=== PATIENT | female | born 1965 | race Caucasian/White ===

== ENCOUNTER 2017-06-05 16:29 | Observation (INO) ==
[2017-06-05 17:45] LABS: Hematocrit 32.7 % (35.3-44.9); Hemoglobin 10.1 g/dL (11.5-15.4); Mean Corpuscular HGB Conc 30.9 g/dL (31.6-35.5); Mean Corpuscular Hemoglobin 28.6 pg (28.0-33.3); Mean Corpuscular Volume 92.6 fL (83.0-100.0); Mean Platelet Volume 9.1 fL (9.4-12.4); Platelet Count 325 K/mcL (140-400); Red Blood Count 3.53 M/mcL (3.82-4.97); Red Cell Distribution Width 14.3 % (11.5-14.5)
[2017-06-05] MEDS ORDERED: Ipratropium/Albuterol Neb 3 ML IH ONE (17:48)
--- NOTE | 2017-06-05 17:50 | Emergency Department Note ---
Disposition Clinical Impression: Healthcare-associated pneumonia, ESRD (end stage renal disease) Disposition: Admitted As Inpatient Condition: Fair Referrals: Birdie Jacob MD [Primary Care Provider] - Forms: ED Satisfaction Letter Time of Disposition: 18:53 General Adult HPI - General Chief complaint: ED Shortness of Breath/Dyspnea Stated complaint: Possible pneumonia Time Seen by Provider: 06/05/17 17:20 Source: patient, family Mode of arrival: ambulatory Limitations: no limitations Nursing Notes Reviewed: Yes Vital Signs Reviewed: Yes - History of Present Illness HPI Narrative: 52-year-old female history of ESRD, Saturday presents for evaluation of possible pneumonia. The patient states that she has not been feeling well this morning. Patient notes an operative cough. Low-grade temperature. Patient states it she went to her dialysis appointment today completed the treatment. However nursing staff there noted the patient had decreased breath sounds on the left. Patient denies any chest pain. Denies any abdominal pain. No nausea or vomiting. No signs of fluid overload or swelling of the lower extremities. Pain Scale: 0 - Related Data Home Medications Medication Instructions Recorded Confirmed Aspirin [Lo-Dose Aspirin EC] 81 mg PO DAILY 03/15/17 03/15/17 Calcitriol 0.5 mcg PO DAILY 03/15/17 03/15/17 Diltiazem CD (24hr) [Cardizem CD] 180 mg PO DAILY 03/15/17 03/15/17 Furosemide [Lasix] 40 mg PO BID 03/15/17 03/15/17 Hydralazine HCl 100 mg PO TID 03/15/17 03/15/17 Insulin ASPART [NovoLOG] 0 unit SQ DAILY PRN 03/15/17 03/15/17 Insulin DETEMIR [Levemir] 30 unit SQ DAILY 03/15/17 03/15/17 Levothyroxine [Synthroid] 75 mcg PO DAILY 03/15/17 03/15/17 Metoprolol Succinate 12.5 mg PO BID 03/15/17 03/15/17 Mycophenolate Sodium [Myfortic] 360 mg PO BID 03/15/17 03/15/17 NIFEdipine [Nifedipine ER] 30 mg PO DAILY 03/15/17 03/15/17 Rosuvastatin Calcium 10 mg PO DAILY 03/15/17 03/15/17 Sodium Bicarbonate 650 mg PO TID 03/15/17 03/15/17 cloNIDine HCl [Clonidine HCl] 0.2 mg PO BID 03/15/17 03/15/17 levoFLOXacin [Levofloxacin] 250 mg PO DAILY 03/15/17 03/15/17 Allergies Allergy/AdvReac Type Severity Reaction Status Date / Time diphenhydramine Allergy Hives Verified 06/05/17 16:32 [From Benadryl] vancomycin Allergy Hives Verified 06/05/17 16:32 All systems ED: reviewed and negative except as stated. Constitutional: Reports: fever Cardiovascular: Denies: chest pain Respiratory: Reports: cough Gastrointestinal: Denies: abdominal pain, nausea, vomiting, diarrhea Past Medical History - Past Medical History Source: patient Medical history: Reports: diabetes, hypertension, renal disease Surgical history: Reports: Psychiatric history: Reports: no psych history SINGLE NEEDLE OPERATOR history: Reports: no SINGLE NEEDLE OPERATOR history - Social History Smoking Status: Never smoker Smokeless Tobacco Status: No Alcohol use: Reports: none Drug use: Reports: none Physical Exam - General Limitations: no limitations General appearance: alert, in no apparent distress - Head Head exam: atraumatic, normocephalic, normal inspection - Eye Eye exam: Present: normal appearance, PERRL, EOMI - ENT ENT exam: normal exam, mucous membranes moist - Neck Neck exam: Present: normal inspection - Chest Chest inspection: Present: normal inspection, symmetric chest wall rise - Respiratory Respiratory exam: Present: other (Increased left-sided breath sounds). Absent: respiratory distress, accessory muscle use - Cardiovascular Cardiovascular exam: Present: regular rate, normal rhythm. Absent: systolic murmur - Abdominal Exam Abdominal exam: Present: soft, Non-Tender - Extremities Exam Extremities exam: Present: normal inspection, other (Functioning left upper extremity AV fistula). Absent: pedal edema - Expanded Lower Extremity Exam Neurovascular/Tendon exam: Present: normal capillary refill - Back Exam Back exam: Present: normal inspection - Neurological Exam Neurological exam: Present: alert - Skin Skin exam: Present: warm, dry, intact, normal color Course Course Narrative: Patient seen and examined. Patient will get basic lab work chest x-ray. Patient was also given a DuoNeb. Clinically the patient has some symptoms suggestive of pneumonia. - Consultations Consultation #1: Spoke with Dr. Nelson who made aware the patient will be admitted. Time: 18:51 Vital Signs Temperature 99.4 F 06/05/17 16:32 Pulse Rate 98 06/05/17 16:32 Respiratory Rate 20 06/05/17 16:32 Blood Pressure 145/72 06/05/17 16:32 O2 Sat by Pulse Oximetry 96 06/05/17 16:32 Temperature 99.4 F 06/05/17 16:32 Pulse Rate 88 06/05/17 18:08 Respiratory Rate 18 06/05/17 18:34 Blood Pressure 112/65 06/05/17 18:08 O2 Sat by Pulse Oximetry 93 06/05/17 18:34 Oxygen Delivery Oxygen Delivery Room Air Medical Decision Making - MDM Narrative Medical decision making narrative: Patient presents with signs symptoms concerning for pneumonia. Patient has had a nonproductive cough as well as chest x-ray evidence of possible superimposed pneumonia. Patient also noted low-grade fevers and is a dialysis patient. Given the patient's signs and symptoms the patient was started on healthcare associated pneumonia. Patient had blood cultures obtained. Patient does have a reaction with vancomycin was started on nasal. Patient aware that the patient 's going to be admitted to their machine edge bander. Patient's breathing did improve during the ED course with a DuoNeb. - Lab Data Lab results reviewed: Yes I reviewed the patient's lab results. Result diagrams: 06/05/17 17:33 06/05/17 17:33 Lab Results 06/05/17 06/05/17 06/05/17 Range/Units 17:33 17:33 17:33 WBC 10.1 (4.3-11.1) K/mcL RBC 3.53 L (3.82-4.97) M/mcL Hgb 10.1 L (11.5-15.4) g/dL Hct 32.7 L (35.3-44.9) % MCV 92.6 (83.0-100.0) fL MCH 28.6 (28.0-33.3) pg MCHC 30.9 L (31.6-35.5) g/dL RDW 14.3 (11.5-14.5) % Plt Count 325 (140-400) K/mcL MPV 9.1 L (9.4-12.4) fL Sodium 140 (136-145) mEq/L Potassium 3.4 L (3.5-5.1) mEq/L Chloride 100 (98-107) mEq/L Carbon Dioxide 31 H (23-29) mEq/L BUN 14 (6-20) mg/dL Creatinine 3.66 H (0.60-1.20) mg/dL Est GFR ( Amer) 16 L (> 60) Est GFR (Non-Af Amer) 13 L (> 60) BUN/Creatinine Ratio 4 L (6-26) Glucose 183 H (70-105) mg/dL Calculated Osmolality 295 (280-300) Lactic Acid 1.2 (0.5-2.2) mmol/L Calcium 9.2 (8.6-10.3) mg/dL Magnesium 2.1 (1.6-2.6) mg/dL Total Bilirubin 0.2 L (0.3-1.0) mg/dL Direct Bilirubin 0.0 (0.0-0.2) mg/dL Indirect Bilirubin 0.2 (0.0-1.2) mg/dL AST 10 L (13-39) Units/L ALT 6 L (7-52) Units/L Alkaline Phosphatase 58 (34-104) Units/L Troponin I (< 0.04) ng/mL B-Natriuretic Peptide (Less than 100) pg/mL Serum Total Protein 6.3 L (6.4-8.9) g/dL Albumin 3.4 L (3.5-5.7) g/dL Globulin 2.9 (2.4-3.5) g/dL Albumin/Globulin Ratio 1.2 (1.1-2.2) 06/05/17 06/05/17 Range/Units 17:33 17:33 WBC (4.3-11.1) K/mcL RBC (3.82-4.97) M/mcL Hgb (11.5-15.4) g/dL Hct (35.3-44.9) % MCV (83.0-100.0) fL MCH (28.0-33.3) pg MCHC (31.6-35.5) g/dL RDW (11.5-14.5) % Plt Count (140-400) K/mcL MPV (9.4-12.4) fL Sodium (136-145) mEq/L Potassium (3.5-5.1) mEq/L Chloride (98-107) mEq/L Carbon Dioxide (23-29) mEq/L BUN (6-20) mg/dL Creatinine (0.60-1.20) mg/dL Est GFR ( Amer) (> 60) Est GFR (Non-Af Amer) (> 60) BUN/Creatinine Ratio (6-26) Glucose (70-105) mg/dL Calculated Osmolality (280-300) Lactic Acid (0.5-2.2) mmol/L Calcium (8.6-10.3) mg/dL Magnesium (1.6-2.6) mg/dL Total Bilirubin (0.3-1.0) mg/dL Direct Bilirubin (0.0-0.2) mg/dL Indirect Bilirubin (0.0-1.2) mg/dL AST (13-39) Units/L ALT (7-52) Units/L Alkaline Phosphatase (34-104) Units/L Troponin I < 0.03 (< 0.04) ng/mL B-Natriuretic Peptide 389 H (Less than 100) pg/mL Serum Total Protein (6.4-8.9) g/dL Albumin (3.5-5.7) g/dL Globulin (2.4-3.5) g/dL Albumin/Globulin Ratio (1.1-2.2) - Radiology Data Radiology results reviewed: Yes I reviewed the patient's radiology results. Chest X-Ray 06/05/17 16:40 IMPRESSION: Evidence of bilateral pleural effusions with adjacent airspace disease, overall greater on the left. Pulmonary edema is considered most likely. Correlate with any clinical evidence of superimposed pneumonia. D/ / Sachin Ramon MD / Sachin Ramon MD Interpreting Provider: Sachin Ramon MD - EKG Data EKG #1 EKG attestation: Yes I reviewed and interpreted this EKG. EKG shows normal: sinus rhythm Rate: normal Rhythm: NSR [place]/QRS: normal Voltage: c/w LVH Interpretation: no acute changes, nonspecific ST-T wave changes S.B.A.R. - S.B.A.R. Situation: Demographics Background: Presenting Complaint Assessment: Vital Signs, Course and respsone to treatment, Patient/Family Expectation Recommendation: Barrier(s) to disposition, Recommendation based on pending studies, treatments, or consults Brian Report Given to: Connor Torres Repor Time: 18:38 Attestation Statement - Attestation Attestation: I examined this patient and my medical decision-making was reviewed with the Resident Physician. I agree with the documented findings, disposition and treatment plan as described except to the extent set forth below. Patient eating not feeling well. Cough. Short of breath. Low-grade temps. Went to dialysis this morning and was told that her lung sounds were abnormal. On examination she is diminished in the left base. Plan. Patient with temp 99 4. Cough. Aches. Flu swab. Septic workup. Likely admission.
[2017-06-05 18:03] LABS: Albumin 3.4 g/dL (3.5-5.7); Albumin/Globulin Ratio 1.2 (1.1-2.2); Bilirubin,Indirect 0.2 mg/dL (0.0-1.2); Bilirubin,Total 0.2 mg/dL (0.3-1.0); Calcium 9.2 mg/dL (8.6-10.3); Globulin 2.9 g/dL (2.4-3.5); Magnesium 2.1 mg/dL (1.6-2.6); Potassium 3.4 mEq/L (3.5-5.1); Total Protein 6.3 g/dL (6.4-8.9)
[2017-06-05] MEDS ORDERED: Piperacillin/Tazobactam 3.375 GM in Water for inj. (sterile) 20 ML IVP ONE (18:03)
--- NOTE | 2017-06-05 19:53 | Internal Med History&Physical ---
<Mely Choudhary - Last Filed: 06/05/17 23:20> Date of Encounter: 06/05/17 Time of Encounter: 08:00 Assessment and Plan (1) Healthcare-associated pneumonia Current visit: Yes Status: Suspected Possible HCAP--hospitalized within last 90 days and regular hemodialysis pt. Currently afebrile. CXR shows blunted costophrenic angles bilaterally and increased central opacity with atelectasis in left mid lung; bilateral pleural effusions. - Empiric linezolid and zosyn for now - Duonebs q6h CONCEPCIÓN and q4h PRN - Supplemental O2, 2L nasal cannula PRN - Respiratory infection panel pending (2) ESRD (end stage renal disease) on dialysis Current visit: Yes Status: Chronic Dr. Medina patient, Dr. Medina aware of pt's admission. Hemodialysis MWF, completed Saturday dialysis appointment. (3) Renal transplant, status post Current visit: Yes Status: Acute s/p renal transplant 2012. Hx of 2 previous renal transplants, one transplant failed after 11.5 years and other failed after 5 years. At home, takes prednisone 5mg daily for immunosuppression. -Hydrocortisone 50mg IV q8h for steroid boost (4) Immunosuppressed status Current visit: Yes Status: Acute Chronic immunosuppression d/t hx of kidney transplant; takes 5mg prednisone daily at home. (5) Diabetes mellitus Current visit: Yes Status: Chronic Blood glucose on admission 183. Glucose control @ home with levemir 30 units qAM and novolog. - monitor glucose with accu-cheks and AM labs - low dose SSI - basal insulin levemir 20 units qAM Qualifiers: Diabetes mellitus type: type 2 Diabetes mellitus complication status: with kidney complications Diabetes mellitus complication detail: with chronic kidney disease Diabetes mellitus senior living insulin use: with senior living use Chronic kidney disease stage: on chronic dialysis Qualified Code(s): E11.22 - Type 2 diabetes mellitus with diabetic chronic kidney disease; N18.6 - End stage renal disease; Z99.2 - Dependence on renal dialysis; Z99.2 - Dependence on renal dialysis; Z99.2 - Dependence on renal dialysis; N18.6 - End stage renal disease; N18.6 - End stage renal disease; N18.6 - End stage renal disease ; Z79.4 - skilled nursing (current) use of insulin; Z79.4 - terminologist (current) use of insulin; Z79.4 - terminologist (current) use of insulin; Z79.4 - terminologist ( current) use of insulin; Z99.2 - Dependence on renal dialysis (6) Hypertension Current visit: No Status: Chronic Continue home meds Qualifiers: Hypertension type: unspecified Qualified Code(s): I10 - Essential (primary ) hypertension (7) Hyperlipidemia Current visit: Yes Status: Acute Continue rosuvastatin Qualifiers: Hyperlipidemia type: unspecified Qualified Code(s): E78.5 - Hyperlipidemia , unspecified (8) DVT prophylaxis Current visit: No Status: Acute Heparin 5,000 units SubQ q12h Internal Medicine - H&P: HPI Chief complaint: shortness of breath Admitted From: Home History of present illness: Ms. Oliva is a 52 year old female with PMH HTN, HLD, DM, ESRD (on HD), s/p kidney transplant 2012, and hypothyroidism who presents for shortness of breath and possible PNA. Pt reports low-grade temperature of 99.5 F in addition to not feeling well x 1 day. At dialysis appointment today (MW), audio visual project manager told pt left lung sounds were diminished. Dialysis appointment completed prior to arrival in ED. Past Med Surg Social Fam HX - Past Medical History Medical history: diabetes, dialysis (HD), hyperlipidemia, hypertension, renal disease (ESRD ), thyroid disease (hypothyroidism) Psychiatric history: no psych history - Past Surgical History Surgical History: , transplant (kidney 2012) - Social History Smoking Status: Never smoker Smokeless Tobacco Status: No Alcohol use: none Drug use: none Current living situation: Home - Family History Father Living Status: Still Living Hx Family Cardiac Disorders: Yes (HTN,heart disease, double bypass) Mother Living Status: Still Living Hx Family Cardiac Disorders: Yes (HTN) Hx Family Endocrine Disorder: Yes (DM type 2) Internal Medicine - H&P: Meds Aspirin [Lo-Dose Aspirin EC] 81 mg PO DAILY 03/15/17 [History] Calcitriol 0.5 mcg PO DAILY 03/15/17 [History] Furosemide [Lasix] 40 mg PO BID 03/15/17 [History] Hydralazine HCl 100 mg PO TID 03/15/17 [History] Insulin ASPART [NovoLOG] 0 unit SQ DAILY PRN 03/15/17 [History] Insulin DETEMIR [Levemir] 30 unit SQ QAM 03/15/17 [History] Levothyroxine [Synthroid] 75 mcg PO QAM 03/15/17 [History] Metoprolol Succinate 12.5 mg PO BID 03/15/17 [History] Mycophenolate Sodium [Myfortic] 360 mg PO BID 03/15/17 [History] NIFEdipine [Nifedipine ER] 30 mg PO DAILY 03/15/17 [History] Rosuvastatin Calcium 10 mg PO HS 03/15/17 [History] Sodium Bicarbonate 650 mg PO TID 03/15/17 [History] cloNIDine HCl [Clonidine HCl] 0.2 mg PO BID 03/15/17 [History] Budesonide/Formoterol 160/4.5 [Symbicort 160/4.5] 2 puff IH BIDR 06/05/17 [ History] Loratadine [Claritin] 10 mg PO DAILY 06/05/17 [History] Sevelamer [Renvela] 800 mg PO TIDWM 06/05/17 [History] predniSONE [PredniSONE] 5 mg PO DAILY 06/05/17 [History] 3 Allergy/AdvReac Type Severity Reaction Status Date / Time diphenhydramine Allergy Hives Verified 06/05/17 16:32 [From Benadryl] vancomycin Allergy Hives Verified 06/05/17 16:32 All Systems PM: A 10-system review of systems was performed and is negative for pertinent findings except as documented above in the HPI. - Constitutional Constitutional: as per HPI, weakness (after dialysis), no chills - Cardiovascular Cardiovascular ROS IM: no chest pain, no dyspnea, no edema, no irregular heart rhythm, no lightheadedness, no palpitations - Respiratory Respiratory: cough (non-productive), no wheezing, no chest congestion - Gastrointestinal Gastrointestinal: no abdominal pain, no constipation, no diarrhea, no nausea, no vomiting - Constitutional Vitals: Temp Pulse Resp BP Pulse Ox 99.4 F 89 16 126/63 96 06/05/17 16:32 06/05/17 19:13 06/05/17 19:13 06/05/17 19:13 06/05/17 19:13 General appearance: Present: A&O X 3, pleasant, no acute distress, answers questions appropriately - Head Head exam: Present: atraumatic, normocephalic - Eye Eye exam: Present: EOMI, normal appearance, PERRL - ENT ENT exam: Present: mucous membranes moist - Neck Neck exam general surgery: Present: supple, trachea midline - Respiratory Respiratory exam: Present: decreased breath sounds (bilateral lower lung fung) . Absent: accessory muscle use, rales, respiratory distress, rhonchi, stridor, wheezes - Cardiovascular Cardiovascular exam: Present: RRR, +S1, +S2 Additional comments: no murmurs, no edema - GI/Abdominal GI/Abdominal exam: Present: normal bowel sounds, soft. Absent: tenderness - Extremities Exam Extremities exam: Present: warm. Absent: pedal edema Additional comments: DP pulses 2+ - Back Exam Back exam: Present: normal inspection - Neurological Exam Neurological exam: Present: alert, oriented X3, no focal deficits. Absent: speech deficit - Psychiatric Psychiatric exam: Present: normal affect, normal mood - Skin Skin exam: Present: dry, intact, warm Internal Med - H&P Results - Labs CBC & Chem 7: 06/05/17 17:33 06/05/17 17:33 Labs: Short CBC 06/05/17 Range/Units 17:33 WBC 10.1 (4.3-11.1) K/mcL Hgb 10.1 L (11.5-15.4) g/dL Hct 32.7 L (35.3-44.9) % Plt Count 325 (140-400) K/mcL BMP 06/05/17 17:33 Sodium 140 Potassium 3.4 L Chloride 100 Carbon Dioxide 31 H BUN 14 Creatinine 3.66 H Glucose 183 H Calcium 9.2 Cardiac Enzymes 06/05/17 Range/Units 17:33 Troponin I < 0.03 (< 0.04) ng/mL Liver Function 06/05/17 Range/Units 17:33 Total Bilirubin 0.2 L (0.3-1.0) mg/dL Direct Bilirubin 0.0 (0.0-0.2) mg/dL AST 10 L (13-39) Units/L ALT 6 L (7-52) Units/L Alkaline Phosphatase 58 (34-104) Units/L Albumin 3.4 L (3.5-5.7) g/dL - Impressions ITS Impressions Chest X-Ray 06/05/17 16:40 IMPRESSION: Evidence of bilateral pleural effusions with adjacent airspace disease, overall greater on the left. Pulmonary edema is considered most likely. Correlate with any clinical evidence of superimposed pneumonia. D/ / Sachin Ramon MD / Sachin Ramon MD Interpreting Provider: Sachin Ramon MD <BeBruno - Last Filed: 06/06/17 05:01> Date of Encounter: 06/06/17 Internal Medicine - H&P: HPI History of present illness: Ms. Oliva is a 52 year old female All Systems PM: A 10-system review of systems was performed and is negative for pertinent findings except as documented above in the HPI. - Constitutional Vitals: Temp Pulse Resp BP Pulse Ox 98.3 F 96 16 176/74 94 06/06/17 04:41 06/06/17 04:41 06/06/17 04:41 06/06/17 04:41 06/06/17 04:41 Internal Med - H&P Results - Labs CBC & Chem 7: 06/06/17 04:11 06/05/17 17:33 Labs: Short CBC 06/06/17 Range/Units 04:11 WBC 11.7 H (4.3-11.1) K/mcL Hgb 9.2 L (11.5-15.4) g/dL Hct 30.9 L (35.3-44.9) % Plt Count 299 (140-400) K/mcL - Attending Attestation I have seen and examined this pt independently. I have discussed with resident physician Dr Choudhary regarding the management plan. Agree with the documentation.
[2017-06-05] MEDS ORDERED: Naloxone 0.4 MG/ML INJ IVP PRN (20:45)
[2017-06-05] MEDS ORDERED: *HR* Dextrose 50 % in Water (Syg) 50 ML SYRINGE IVP PRN ×2 (20:52→21:25)
[2017-06-05] MEDS ORDERED: Dextrose Gel 15 GM/37.5 ML TUBE PO PRN ×4 (20:52→21:25)
[2017-06-05] MEDS ORDERED: D5% in Water 1,000 ML IVC PRN ×2 (20:52→21:25)
[2017-06-05] MEDS ORDERED: Insulin LISPRO 300 UNITS/3 ML VIAL SQ SCH (21:00)
[2017-06-05] MEDS ORDERED: Ipratropium/Albuterol Neb 3 ML IH PRN (21:25)
[2017-06-05] MEDS: Ipratropium/Albuterol Neb 3 ML IH SCH (23:08)
[2017-06-05] MEDS: Hydrocortisone Sodium Succ 100 MG/2 ML VIAL IVP SCH (23:52)
[2017-06-06 04:31] LABS: Hematocrit 30.9 % (35.3-44.9); Hemoglobin 9.2 g/dL (11.5-15.4); Mean Corpuscular HGB Conc 29.8 g/dL (31.6-35.5); Mean Corpuscular Hemoglobin 28.6 pg (28.0-33.3); Mean Platelet Volume 9.2 fL (9.4-12.4); Platelet Count 299 K/mcL (140-400); Red Blood Count 3.22 M/mcL (3.82-4.97); Red Cell Distribution Width 14.2 % (11.5-14.5)
[2017-06-06] MEDS: Ipratropium/Albuterol Neb 3 ML IH SCH ×2 (04:33→10:48)
[2017-06-06 05:02] LABS: Calcium 9.5 mg/dL (8.6-10.3); Magnesium 2.2 mg/dL (1.6-2.6); Potassium 3.9 mEq/L (3.5-5.1)
[2017-06-06] MEDS ORDERED: *HR* Heparin 5,000 UNIT/ML VIAL SQ SCH (06:00)
[2017-06-06 07:19] VITALS: BP 159/83
[2017-06-06] MEDS ORDERED: Insulin LISPRO 300 UNITS/3 ML VIAL SQ SCH ×3 (07:30→21:00)
[2017-06-06] MEDS: Hydrocortisone Sodium Succ 100 MG/2 ML VIAL IVP SCH (08:12)
[2017-06-06] MEDS ORDERED: Furosemide 40 MG TABLET PO SCH ×2 (08:15→09:00)
--- NOTE | 2017-06-06 08:31 | Discharge Summary ---
Date of Encounter: 06/06/17 Time of Encounter: 08:28 - Discharge Diagnosis (1) Renal transplant failure and rejection Priority: Secondary Status: Acute (2) End stage renal disease Priority: Secondary Status: Acute (3) Renal transplant, status post Priority: Secondary Status: Acute (4) Healthcare-associated pneumonia Priority: Primary Status: Suspected (5) Hypertension Priority: Secondary Status: Chronic Qualifiers: Hypertension type: unspecified Qualified Code(s): I10 - Essential (primary ) hypertension - Discharge Medications Prescriptions: Amoxicillin/Clavulanate [Augmentin] 875 mg PO BIDWM #10 tablet Home Medications: Aspirin [Lo-Dose Aspirin EC] 81 mg PO DAILY 03/15/17 [History] Calcitriol 0.5 mcg PO DAILY 03/15/17 [History] Furosemide [Lasix] 40 mg PO BID 03/15/17 [History] Hydralazine HCl 100 mg PO TID 03/15/17 [History] Insulin ASPART [NovoLOG] 0 unit SQ DAILY PRN 03/15/17 [History] Insulin DETEMIR [Levemir] 30 unit SQ QAM 03/15/17 [History] Levothyroxine [Synthroid] 75 mcg PO QAM 03/15/17 [History] Metoprolol Succinate 12.5 mg PO BID 03/15/17 [History] Mycophenolate Sodium [Myfortic] 360 mg PO BID 03/15/17 [History] NIFEdipine [Nifedipine ER] 30 mg PO DAILY 03/15/17 [History] Rosuvastatin Calcium 10 mg PO HS 03/15/17 [History] Sodium Bicarbonate 650 mg PO TID 03/15/17 [History] cloNIDine HCl [Clonidine HCl] 0.2 mg PO BID 03/15/17 [History] Budesonide/Formoterol 160/4.5 [Symbicort 160/4.5] 2 puff IH BIDR 06/05/17 [ History] Loratadine [Claritin] 10 mg PO DAILY 06/05/17 [History] Sevelamer [Renvela] 800 mg PO TIDWM 06/05/17 [History] predniSONE [PredniSONE] 5 mg PO DAILY 06/05/17 [History] Amoxicillin/Clavulanate [Augmentin] 875 mg PO BIDWM #10 tablet 06/06/17 [Rx] Allergies/Adverse Reactions: 3 Allergy/AdvReac Type Severity Reaction Status Date / Time diphenhydramine Allergy Hives Verified 06/05/17 16:32 [From Benadryl] vancomycin Allergy Hives Verified 06/05/17 16:32 Date of admission: 06/06/17 04:55 Primary care physician: Birdie Jacob MD - Patient Status Disposition: Home, Self-Care Condition: Fair Overall status at discharge: patient is progressing back to baseline - Discharge Instructions Instructions: Amoxicillin/Clavulanate Potassium (By mouth) Follow Up With: Birdie Jacob MD [Primary Care Provider] - 06/13/17 12:40 pm (Please bring your Photo ID and insurance card) - Diet and Activity Activity: as per physical therapy Diet: low salt diet (renal diet) Hospital course: Ms. Oliva is a 52 year old female with PMH HTN, HLD, DM, ESRD (on HD), s/p kidney transplant 2012, and hypothyroidism who presented for shortness of breath and possible PNA. Pt reported low-grade temperature of 99.5 F in addition to not feeling well x 1 day. At dialysis appointment, dowel pin man told pt left lung sounds were diminished. Dialysis appointment completed prior to arrival in ED. in the ED chest x-ray showed evidence of bilateral pleural effusions with adjacent airspace disease. She was admitted to the hospitalist service for suspected patch. She was on room air the following morning. She initially was on broad-spectrum IV antibiotics. She eventually was discharged on Augmentin. She was stable for discharge on 06/06/2017. - Time Spent with Patient Total time spent providing and/or coordinating discharge services: Greater than 30 minutes - Constitutional Vitals: Temp Pulse Resp BP Pulse Ox 97.9 F 95 22 159/83 97 06/06/17 07:17 06/06/17 07:17 06/06/17 07:17 06/06/17 07:17 06/06/17 07:17 General appearance: Present: A&O X 3, pleasant, no acute distress, answers questions appropriately Exam: GEN: NAD CVS: RRR. S1, S2, No m/r/g RESP: Diminished with bibasilar crackles ABD: Soft, NT, ND, +BS EXT: No edema. 2+ DP. No rashes NEURO: Nonfocal
[2017-06-06] MEDS ORDERED: Metoprolol XL (24 HR) Succ 25 MG TAB.ER.24H PO SCH (09:00)
[2017-06-06] MEDS ORDERED: Loratadine 10 MG TABLET PO SCH (09:00)
[2017-06-06] MEDS ORDERED: predniSONE 5 MG TABLET PO SCH (09:00)
[2017-06-06] MEDS ORDERED: cloNIDine HCl 0.1 MG TABLET PO SCH (09:00)
[2017-06-06] MEDS ORDERED: Mycophenolate Sodium (DR) 180 MG TABLET.DR PO SCH (09:00)
[2017-06-06] MEDS ORDERED: NIFEdipine XL (24 HR) 30 MG TAB.ER.24 PO SCH (09:00)
[2017-06-06] MEDS ORDERED: hydrALAZINE 25 MG TABLET PO SCH (09:00)
[2017-06-06] MEDS ORDERED: Aspirin Enteric Coated 81 MG Tablet PO SCH (09:00)
[2017-06-06] MEDS ORDERED: Insulin DETEMIR 100 UNIT/ML X5UNITS SQ SCH ×2 (09:00→21:00)
[2017-06-06] MEDS ORDERED: Budesonide/Formoterol 160/4.5 MDI IH SCH (10:00)
[2017-06-06 10:07] LABS: Hepatitis B Surface Antigen Nonreactive (Nonreactive)
--- NOTE | 2017-06-06 10:18 | Nephrology Consult Note ---
Date of Encounter: 06/06/17 Time of Encounter: 09:55 Assessment and Plan (1) End stage renal disease Current Visit: Yes Status: Acute HCAP. ESRD-no HD today, keeping [facility] schedule. History of Present Illness - Reason for Consult end stage renal disease - History of Present Illness Ms. Oliva is a 52 year old female with ESRD who dialyzes at [facility]. Last dialysis yesterday. Other PMH-diabetes, dialysis (HD), hyperlipidemia, hypertension, renal disease (ESRD ), thyroid disease (hypothyroidism) , transplant (kidney 2012). Ms. Oliva presented to ER following diaysis yesterday with complaint of not feeling well, TONI and low grade temp. CXR suspicious for PNA. Admitted with HCAP. This morning is up in room, states feeling much better and is being discharged home. Past Med Surg Social Fam HX - Past Medical History Medical history: diabetes, dialysis (HD), hyperlipidemia, hypertension, renal disease (ESRD ), thyroid disease (hypothyroidism) Psychiatric history: no psych history - Past Surgical History Surgical History: , transplant (kidney 2012) - Social History Smoking Status: Never smoker Smokeless Tobacco Status: No Alcohol use: none Drug use: none - Family History Father Living Status: Still Living Hx Family Cardiac Disorders: Yes (HTN,heart disease, double bypass) Mother Living Status: Still Living Hx Family Cardiac Disorders: Yes (HTN) Hx Family Endocrine Disorder: Yes (DM type 2) Medications and Allergies Aspirin [Lo-Dose Aspirin EC] 81 mg PO DAILY 03/15/17 [History] Calcitriol 0.5 mcg PO DAILY 03/15/17 [History] Furosemide [Lasix] 40 mg PO BID 03/15/17 [History] Hydralazine HCl 100 mg PO TID 03/15/17 [History] Insulin ASPART [NovoLOG] 0 unit SQ DAILY PRN 03/15/17 [History] Insulin DETEMIR [Levemir] 30 unit SQ QAM 03/15/17 [History] Levothyroxine [Synthroid] 75 mcg PO QAM 03/15/17 [History] Metoprolol Succinate 12.5 mg PO BID 03/15/17 [History] Mycophenolate Sodium [Myfortic] 360 mg PO BID 03/15/17 [History] NIFEdipine [Nifedipine ER] 30 mg PO DAILY 03/15/17 [History] Rosuvastatin Calcium 10 mg PO HS 03/15/17 [History] Sodium Bicarbonate 650 mg PO TID 03/15/17 [History] cloNIDine HCl [Clonidine HCl] 0.2 mg PO BID 03/15/17 [History] Budesonide/Formoterol 160/4.5 [Symbicort 160/4.5] 2 puff IH BIDR 06/05/17 [ History] Loratadine [Claritin] 10 mg PO DAILY 06/05/17 [History] Sevelamer [Renvela] 800 mg PO TIDWM 06/05/17 [History] predniSONE [PredniSONE] 5 mg PO DAILY 06/05/17 [History] Amoxicillin/Clavulanate [Augmentin] 875 mg PO BIDWM #10 tablet 06/06/17 [Rx] 3 Allergy/AdvReac Type Severity Reaction Status Date / Time diphenhydramine Allergy Hives Verified 06/05/17 16:32 [From Benadryl] vancomycin Allergy Hives Verified 06/05/17 16:32 Review of Systems All Systems: reviewed and no additional remarkable complaints except as stated Exam - Vital Signs Vital signs: Initial Vital Signs Temp Pulse Resp BP Pulse Ox 99.4 F 98 20 145/72 96 06/05/17 16:32 06/05/17 16:32 06/05/17 16:32 06/05/17 16:32 06/05/17 16:32 Vital Signs - Last 8 Hours Temp Pulse Resp BP Pulse Ox 06/06/17 07:17 97.9 F 95 22 159/83 97 Intake and Output 06/05/17 06/06/17 06/06/17 23:59 07:59 15:59 Output Total 0 / 0 Balance 0 / 0 Output: Urine 0 / 0 Other: Weight 82.1 kg Blood Glucose* 199 Patient Weight 06/06/17 23:59 Weight 82.1 kg - General Appearance General appearance: well-developed, well-nourished, appears started age EENT: mucous membranes moist Neck: no JVD Respiratory: clear Cardiology: no edema, regular rate, regular rhythm Gastrointestinal: normoactive bowel sounds, no tenderness Integumentary: warm and dry Neurologic: alert and oriented x3 Results - Lab Results 06/06/17 04:11 06/06/17 04:11 Most recent lab results Calcium 9.5 mg/dL (8.6-10.3) 06/06/17 04:11 Magnesium 2.2 mg/dL (1.6-2.6) 06/06/17 04:11 Consult Discharge Plan - Plan Instructions: Amoxicillin/Clavulanate Potassium (By mouth) Referrals: Birdie Jacob MD [Primary Care Provider] - 06/13/17 12:40 pm (Please bring your Photo ID and insurance card) Prescriptions: Amoxicillin/Clavulanate [Augmentin] 875 mg PO BIDWM #10 tablet
[2017-06-07 05:50] LABS: Hepatitis B Surface Antibody 9.18 mIU/mL
--- NOTE | 2017-06-09 18:04 | Electrocardiograph Report ---
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
== END 2017-06-06 11:47 | disposition home or self-care (01) ==
LOC: 2ANU 16:29 → EMEROO 16:29 → 2ANU 21:05
PROVIDERS: ADMIT Internal Medicine; ATTEND Registered Nurse

== ENCOUNTER 2020-07-15 15:07 | Observation (INO) ==
[2020-07-15] MEDS ORDERED: Ondansetron 4 MG/2 ML VIAL IVP PRN (19:30)
[2020-07-15] MEDS ORDERED: Naloxone 0.4 MG/ML INJ IVP PRN (19:30)
[2020-07-15] MEDS ORDERED: *HR* OxyCODONE Immed Rel 5 MG TABLET PO PRN (19:30)
[2020-07-15] MEDS ORDERED: *HR* Dextrose 50 % in Water (Vial) 50 ML VIAL IVP PRN (19:37)
[2020-07-15] MEDS ORDERED: Dextrose Gel 15 GM/37.5 ML TUBE PO PRN ×2 (19:37)
[2020-07-15] MEDS ORDERED: D5% in Water 1,000 ML IVC PRN (19:37)
[2020-07-15] MEDS ORDERED: Albuterol 2.5 MG/3 ML NEBULIZER IH PRN (19:40)
[2020-07-15 20:34] LABS: Basophils % 0.3 %; Hematocrit 31.6 % (35.3-44.9); Hemoglobin 9.6 g/dL (11.5-15.4); Immature Granulocytes % 0.8 % (0-4); Lymphocytes # 0.4 K/mcL (0.6-4.6); Lymphocytes % 3.4 %; Mean Corpuscular HGB Conc 30.4 g/dL (31.6-35.5); Mean Corpuscular Hemoglobin 31.9 pg (28.0-33.3); Mean Platelet Volume 9.5 fL (9.4-12.4); Monocytes # 0.1 K/mcL (0.0-1.3); Monocytes % 0.9 %; Neutrophils # 10.6 K/mcL (1.6-8.9); Platelet Count 266 K/mcL (140-400); Red Blood Count 3.01 M/mcL (3.82-4.97); Segmented Neutrophils % 94.6 %; White Blood Count 11.2 K/mcL (4.3-11.1)
[2020-07-15] MEDS ORDERED: Nitroglycerin 0.4 MG TAB.SUBL SL PRN (20:47)
[2020-07-15 20:48] LABS: INR 1.1; Prothrombin Time 12.4 Seconds (9.4-12.1)
[2020-07-15 20:50] LABS: Activated Partial Thrombo Time 27.6 Seconds (26.0-36.0)
[2020-07-15 20:57] LABS: Alanine Aminotransferase 10 Units/L (7-52); Albumin 3.8 g/dL (3.5-5.7); Albumin/Globulin Ratio 1.2 (1.1-2.2); Alkaline Phosphatase 86 Units/L (34-104); Aspartate Amino Transferase 10 Units/L (13-39); BUN/Creatinine Ratio 5 (6-26); Bilirubin,Total 0.2 mg/dL (0.3-1.0); Blood Urea Nitrogen 32 mg/dL (6-20); C-Reactive Protein 76 mg/L (Less than 10); Calcium 9.2 mg/dL (8.6-10.3); Carbon Dioxide 30 mEq/L (23-29); Chloride 97 mEq/L (98-107); Globulin 3.3 g/dL (2.4-3.5); Glucose 211 mg/dL (70-105); Magnesium 2.5 mg/dL (1.6-2.6); Osmolality,Calculated 301 (280-300); Phosphorous 4.6 mg/dL (2.7-4.5); Potassium 5.4 mEq/L (3.5-5.1); Sodium 139 mEq/L (136-145); Total Protein 7.1 g/dL (6.4-8.9); Troponin I < 0.03 ng/mL (< 0.04); eGFR For African Americans 9 (> 60); eGFR For Non-African Americans 7 (> 60)
[2020-07-15] MEDS ORDERED: Loratadine 10 MG TABLET PO PRN (20:59)
[2020-07-15] MEDS ORDERED: predniSONE 5 MG TABLET PO SCH (21:00)
[2020-07-15] MEDS ORDERED: rOPINIRole 0.25 MG TABLET PO SCH (21:00)
[2020-07-15] MEDS ORDERED: Ergocalciferol (VIT D2) 50,000 UNIT (1.25MG) CAP PO SCH (21:00)
[2020-07-16] MEDS ORDERED: *HR* Heparin 5,000 UNIT/ML VIAL SQ SCH (06:00)
[2020-07-16] MEDS ORDERED: Insulin LISPRO 300 UNITS/3 ML VIAL SUBQ SCH (07:30)
[2020-07-16] MEDS ORDERED: 0.9 % Sodium Chloride 250 ML IVC PRN (07:40)
[2020-07-16] MEDS ORDERED: 0.9 % Sodium Chloride 1,000 ML PRIME SCH (07:45)
[2020-07-16] MEDS ORDERED: Amoxicillin/Clavulanate 500 MG TABLET PO SCH (08:00)
[2020-07-16] MEDS ORDERED: Aspirin 325 MG TABLET PO SCH (09:00)
[2020-07-16 09:06] LABS: Hepatitis B Surface Antigen Nonreactive (Nonreactive)
[2020-07-16 10:39] LABS: Hepatitis B Surface Antibody 9.56 mIU/mL
[2020-07-16 14:37] VITALS: BP 148/78
== END 2020-07-16 15:33 | disposition home or self-care (01) ==
LOC: 2ANU → SUATTDRO 17:50
PROVIDERS: ADMIT General Practice; ATTEND Family Medicine

== ENCOUNTER 2021-02-24 11:37 | Inpatient (IN) ==
[2021-02-24] MEDS ORDERED: Ondansetron 4 MG/2 ML VIAL IVP ONE (11:51)
[2021-02-24 12:28] LABS: Basophils # 0.1 K/mcL (0.0-0.2); Basophils % 1.6 %; Eosinophils # 0.3 K/mcL (0.0-0.6); Eosinophils % 4.9 %; Hematocrit 28.8 % (35.3-44.9); Lymphocytes % 14.9 %; Mean Corpuscular HGB Conc 31.9 g/dL (31.6-35.5); Mean Corpuscular Hemoglobin 33.7 pg (28.0-33.3); Monocytes # 0.6 K/mcL (0.0-1.3); Monocytes % 8.4 %; Neutrophils # 4.7 K/mcL (1.6-8.9); Platelet Count 364 K/mcL (140-400); Red Blood Count 2.73 M/mcL (3.82-4.97); Segmented Neutrophils % 69.2 %; White Blood Count 6.8 K/mcL (4.3-11.1)
[2021-02-24 12:29] LABS: Hemoglobin 9.2 g/dL (11.5-15.4); Mean Corpuscular Volume 105.5 fL (83.0-100.0)
[2021-02-24 12:40] LABS: INR 1.2; Prothrombin Time 12.9 Seconds (9.4-12.1)
[2021-02-24 12:43] LABS: Activated Partial Thrombo Time 38.2 Seconds (26.0-36.0)
[2021-02-24 13:28] LABS: Albumin 3.8 g/dL (3.5-5.7); Bilirubin,Indirect 0.4 mg/dL (0.0-1.0); Bilirubin,Total 0.4 mg/dL (0.3-1.0); Calcium 8.5 mg/dL (8.6-10.3); Potassium 3.4 mEq/L (3.5-5.1); Total Protein 7.8 g/dL (6.4-8.9)
[2021-02-24 13:34] LABS: Troponin I 0.03 ng/mL (< 0.04)
[2021-02-24] MEDS ORDERED: Acetaminophen 325 MG TABLET PO PRN (13:52)
[2021-02-24] MEDS ORDERED: Ondansetron 4 MG/2 ML VIAL IVP PRN (13:52)
[2021-02-24] MEDS ORDERED: Mag Hydrox/Al Hydrox/Simeth 30 ML UDC PO PRN (13:52)
[2021-02-24] MEDS ORDERED: Naloxone 0.4 MG/ML INJ IVP PRN (13:52)
[2021-02-24] MEDS ORDERED: Milk and Molasses Enema 200 ML RC ONE (14:33)
[2021-02-24] MEDS ORDERED: 0.9 % Sodium Chloride 250 ML IVC PRN (14:34)
[2021-02-24] MEDS ORDERED: 0.9 % Sodium Chloride 1,000 ML PRIME SCH (14:45)
[2021-02-24 17:36] LABS: Hepatitis B Surface Antigen Nonreactive (Nonreactive)
[2021-02-24 18:34] LABS: Hepatitis B Surface Antibody 11.01 mIU/mL
[2021-02-24] MEDS: *HR* Heparin 5,000 UNIT/ML VIAL SQ SCH (18:57)
[2021-02-24] MEDS: rOPINIRole 0.25 MG TABLET PO SCH (20:18)
[2021-02-25] MEDS: *HR* Heparin 5,000 UNIT/ML VIAL SQ SCH ×3 (00:04→16:40)
[2021-02-25 05:51] LABS: Hematocrit 27.2 % (35.3-44.9); Hemoglobin 8.2 g/dL (11.5-15.4); Mean Corpuscular HGB Conc 30.1 g/dL (31.6-35.5); Mean Corpuscular Hemoglobin 33.1 pg (28.0-33.3); Mean Corpuscular Volume 109.7 fL (83.0-100.0); Mean Platelet Volume 9.2 fL (9.4-12.4); Platelet Count 300 K/mcL (140-400); Red Blood Count 2.48 M/mcL (3.82-4.97); Red Cell Distribution Width 15.2 % (11.5-14.5); White Blood Count 5.9 K/mcL (4.3-11.1)
[2021-02-25 06:07] LABS: Calcium 7.8 mg/dL (8.6-10.3); Magnesium 2.4 mg/dL (1.6-2.6); Potassium 4.4 mEq/L (3.5-5.1)
[2021-02-25] MEDS: predniSONE 5 MG TABLET PO SCH ×2 (08:08→21:57)
[2021-02-25] MEDS: polyethylene glycoL 3350 17 GM POWD.PACK PO SCH (08:08)
[2021-02-25] MEDS: Aspirin 325 MG TABLET PO SCH (08:08)
[2021-02-25] MEDS: Zinc Sulfate 220 MG CAPSULE PO SCH (08:09)
[2021-02-25] MEDS: Sennosides/Docusate Sodium TABLET PO SCH ×2 (08:09→21:57)
[2021-02-25] MEDS ORDERED: 0.9 % Sodium Chloride 250 ML IVC PRN (08:23)
[2021-02-25] MEDS: rOPINIRole 0.25 MG TABLET PO SCH (21:57)
[2021-02-26] MEDS: *HR* Heparin 5,000 UNIT/ML VIAL SQ SCH ×3 (01:33→17:03)
[2021-02-26 05:52] LABS: Basophils # 0.1 K/mcL (0.0-0.2); Eosinophils # 0.3 K/mcL (0.0-0.6); Eosinophils % 4.1 %; Hematocrit 28.3 % (35.3-44.9); Hemoglobin 8.6 g/dL (11.5-15.4); Immature Granulocytes % 3.1 % (0-4); Lymphocytes # 1.5 K/mcL (0.6-4.6); Lymphocytes % 21.5 %; Mean Corpuscular HGB Conc 30.4 g/dL (31.6-35.5); Mean Corpuscular Hemoglobin 33.1 pg (28.0-33.3); Mean Corpuscular Volume 108.8 fL (83.0-100.0); Mean Platelet Volume 9.4 fL (9.4-12.4); Monocytes # 1.1 K/mcL (0.0-1.3); Monocytes % 15.4 %; Neutrophils # 3.8 K/mcL (1.6-8.9); Platelet Count 329 K/mcL (140-400); Red Cell Distribution Width 14.7 % (11.5-14.5); Segmented Neutrophils % 53.9 %
[2021-02-26 06:13] LABS: Alanine Aminotransferase 6 Units/L (7-52); Albumin 3.6 g/dL (3.5-5.7); Alkaline Phosphatase 141 Units/L (34-104); Aspartate Amino Transferase 13 Units/L (13-39); Bilirubin,Indirect 0.3 mg/dL (0.0-1.0); Bilirubin,Total 0.3 mg/dL (0.3-1.0); Globulin 3.7 g/dL (2.4-3.5); Iron 100 mcg/dL (50-170); Total Protein 7.3 g/dL (6.4-8.9)
[2021-02-26 06:14] LABS: Calcium 8.3 mg/dL (8.6-10.3); Magnesium 2.4 mg/dL (1.6-2.6); Phosphorous 4.6 mg/dL (2.7-4.5); Potassium 4.9 mEq/L (3.5-5.1)
[2021-02-26 06:18] LABS: Thyroid Stimulating Hormone 7.165 mcIU/mL (0.340-5.600)
[2021-02-26 06:23] LABS: Ferritin > 1500 ng/mL (10-120)
[2021-02-26 06:27] LABS: % Iron Saturation 45 % (15-50); Transferrin 160 mg/dL (203-362)
[2021-02-26] MEDS: Sennosides/Docusate Sodium TABLET PO SCH ×2 (09:26→20:35)
[2021-02-26] MEDS: Aspirin 325 MG TABLET PO SCH (09:26)
[2021-02-26] MEDS: predniSONE 5 MG TABLET PO SCH ×2 (09:26→20:33)
[2021-02-26] MEDS: polyethylene glycoL 3350 17 GM POWD.PACK PO SCH ×2 (09:26→20:35)
[2021-02-26] MEDS: Zinc Sulfate 220 MG CAPSULE PO SCH (09:26)
[2021-02-26] MEDS ORDERED: Lactulose Oral Soln 20 GM/30 ML UDC PO ONE (09:49)
[2021-02-26 11:01] LABS: Estimated Average Glucose 108 mg/dl; Hemoglobin A1C 5.4 %
[2021-02-26] MEDS ORDERED: Cyanocobalamin (B-12) 1,000 MCG/ML VIAL SQ ONE (14:50)
[2021-02-26] MEDS: rOPINIRole 0.25 MG TABLET PO SCH (20:35)
[2021-02-26] MEDS: Melatonin 3 MG TABLET PO PRN (20:35)
[2021-02-27] MEDS: *HR* Heparin 5,000 UNIT/ML VIAL SQ SCH ×3 (00:24→15:42)
[2021-02-27 01:51] LABS: Basophils # 0.1 K/mcL (0.0-0.2); Basophils % 1.8 %; Eosinophils # 0.3 K/mcL (0.0-0.6); Hematocrit 25.5 % (35.3-44.9); Hemoglobin 8.2 g/dL (11.5-15.4); Immature Granulocytes % 2.8 % (0-4); Lymphocytes # 1.5 K/mcL (0.6-4.6); Lymphocytes % 21.3 %; Mean Corpuscular HGB Conc 32.2 g/dL (31.6-35.5); Mean Corpuscular Hemoglobin 34.2 pg (28.0-33.3); Mean Corpuscular Volume 106.3 fL (83.0-100.0); Mean Platelet Volume 9.2 fL (9.4-12.4); Monocytes # 0.9 K/mcL (0.0-1.3); Monocytes % 13.1 %; Neutrophils # 3.8 K/mcL (1.6-8.9); Platelet Count 345 K/mcL (140-400); Red Cell Distribution Width 14.6 % (11.5-14.5); White Blood Count 6.9 K/mcL (4.3-11.1)
[2021-02-27 01:58] LABS: Calcium 8.4 mg/dL (8.6-10.3); Magnesium 2.6 mg/dL (1.6-2.6); Potassium 4.8 mEq/L (3.5-5.1)
[2021-02-27] MEDS: polyethylene glycoL 3350 17 GM POWD.PACK PO SCH ×2 (08:23→15:46)
[2021-02-27] MEDS: Aspirin 325 MG TABLET PO SCH (08:24)
[2021-02-27] MEDS: Zinc Sulfate 220 MG CAPSULE PO SCH (08:24)
[2021-02-27] MEDS: predniSONE 5 MG TABLET PO SCH ×2 (08:24→20:13)
[2021-02-27] MEDS: Sennosides/Docusate Sodium TABLET PO SCH ×2 (08:24→20:13)
[2021-02-27] MEDS ORDERED: 0.9 % Sodium Chloride 250 ML IVC PRN (11:26)
[2021-02-27] MEDS ORDERED: polyethylene glycoL 3350 17 GM POWD.PACK PO ONE ×4 (21:00→23:00)
[2021-02-27] MEDS ORDERED: polyethylene glycoL 3350 17 GM POWD.PACK PO SCH (21:30)
[2021-02-27] MEDS: rOPINIRole 0.25 MG TABLET PO SCH (22:54)
[2021-02-28] MEDS: *HR* Heparin 5,000 UNIT/ML VIAL SQ SCH ×3 (00:24→15:47)
[2021-02-28] MEDS: Melatonin 3 MG TABLET PO PRN (00:41)
[2021-02-28 07:23] VITALS: O2SAT 100
[2021-02-28] MEDS: Aspirin 325 MG TABLET PO SCH (09:04)
[2021-02-28] MEDS: predniSONE 5 MG TABLET PO SCH (09:04)
[2021-02-28] MEDS: Zinc Sulfate 220 MG CAPSULE PO SCH (09:05)
[2021-02-28] MEDS: polyethylene glycoL 3350 17 GM POWD.PACK PO SCH (09:07)
[2021-02-28 10:40] VITALS: BP 167/95; PULSE 69; TEMP 96
== END 2021-02-28 16:14 | disposition home or self-care (01) | DRG 391 ==
LOC: 2ANU 11:37 → EMEROOARM 11:37 → SUATTDRO 14:41 → 2ANU 14:49
PROVIDERS: ADMIT Internal Medicine; ATTEND Pharmacist

== ENCOUNTER 2021-08-30 19:37 | Observation (INO) ==
[2021-08-30] MEDS ORDERED: *HR* Labetalol 20 MG/4 ML SYRINGE IVP ONE (21:39)
[2021-08-30 21:52] LABS: Basophils # 0.1 K/mcL (0.0-0.2); Basophils % 0.9 %; Eosinophils # 0.3 K/mcL (0.0-0.6); Eosinophils % 3.2 %; Hematocrit 26.7 % (35.3-44.9); Hemoglobin 8.6 g/dL (11.5-15.4); Lymphocytes # 1.2 K/mcL (0.6-4.6); Lymphocytes % 12.2 %; Mean Corpuscular HGB Conc 32.2 g/dL (31.6-35.5); Mean Corpuscular Hemoglobin 31.9 pg (28.0-33.3); Mean Corpuscular Volume 98.9 fL (83.0-100.0); Mean Platelet Volume 8.8 fL (9.4-12.4); Monocytes # 1.1 K/mcL (0.0-1.3); Monocytes % 10.8 %; Neutrophils # 7.1 K/mcL (1.6-8.9); Platelet Count 237 K/mcL (140-400); Red Cell Distribution Width 15.8 % (11.5-14.5); Segmented Neutrophils % 71.9 %; White Blood Count 9.9 K/mcL (4.3-11.1)
[2021-08-30 22:00] LABS: VBG HCO3 36 mEq/L (21-27); VBG PCO2 52 mmHg (41-51); VBG PH 7.44 pH Units (7.32-7.42); VBG PO2 55 mmHg (25-50)
[2021-08-30 22:04] LABS: Albumin/Globulin Ratio 1.3 (1.1-2.2); Bilirubin,Total 0.4 mg/dL (0.3-1.0); Calcium 7.8 mg/dL (8.6-10.3); Globulin 3.2 g/dL (2.4-3.5); Potassium 3.9 mEq/L (3.5-5.1); Total Protein 7.2 g/dL (6.4-8.9); Troponin I 0.04 ng/mL (< 0.04)
[2021-08-30] MEDS ORDERED: Isovue-370 500 ML BOTTLE IVP ONE (23:06)
[2021-08-30 23:12] LABS: Adenovirus Not Detected (Not Detect); Bordetella Pertussis Not Detected (Not Detect); Chlamydophila pneumoniae Not Detected (Not Detect); Coronavirus 229E Not Detected (Not Detect); Coronavirus HKU1 Not Detected (Not Detect); Coronavirus NL63 Not Detected (Not Detect); Coronavirus OC43 Not Detected (Not Detect); Human Metapneumovirus Not Detected (Not Detect); Human Rhinovirus/Enterovirus Not Detected (Not Detect); Influenza A Subtype 2009 H1 Not Detected (Not Detect); Influenza B Not Detected (Not Detect); Mycoplasma pneumoniae Not Detected (Not Detect); Parainfluenza Virus 1 Not Detected (Not Detect); Parainfluenza Virus 2 Not Detected (Not Detect); Parainfluenza Virus 3 Not Detected (Not Detect); Parainfluenza Virus 4 Not Detected (Not Detect); Respiratory Syncytial Virus Not Detected (Not Detect); SARS-CoV-2 Not Detected (Not Detect)
[2021-08-31] MEDS ORDERED: *HR* Labetalol 20 MG/4 ML SYRINGE IVP ONE (01:15)
[2021-08-31] MEDS ORDERED: Ketorolac 30 MG/ML VIAL IVP ONE (01:19)
[2021-08-31] MEDS ORDERED: Ondansetron 4 MG/2 ML VIAL IVP ONE (01:20)
[2021-08-31] MEDS ORDERED: Prochlorperazine 10 MG/2 ML VIAL IVP ONE (01:20)
[2021-08-31] MEDS ORDERED: Ondansetron 4 MG/2 ML VIAL IVP PRN (02:02)
[2021-08-31] MEDS ORDERED: Acetaminophen 325 MG TABLET PO PRN (02:02)
[2021-08-31] MEDS ORDERED: Melatonin 3 MG TABLET PO PRN (02:02)
[2021-08-31] MEDS ORDERED: Naloxone 0.4 MG/ML INJ IVP PRN (02:02)
[2021-08-31] MEDS ORDERED: hydrALAZINE 25 MG TABLET PO ONE (02:53)
[2021-08-31] MEDS: *HR* Labetalol 20 MG/4 ML SYRINGE IVP PRN ×2 (03:07→08:29)
[2021-08-31 05:48] LABS: Basophils # 0.1 K/mcL (0.0-0.2); Basophils % 0.7 %; Eosinophils # 0.2 K/mcL (0.0-0.6); Eosinophils % 1.9 %; Hematocrit 23.9 % (35.3-44.9); Hemoglobin 7.5 g/dL (11.5-15.4); Immature Granulocytes % 0.7 % (0-4); Mean Corpuscular HGB Conc 31.4 g/dL (31.6-35.5); Mean Corpuscular Hemoglobin 31.6 pg (28.0-33.3); Mean Corpuscular Volume 100.8 fL (83.0-100.0); Mean Platelet Volume 8.9 fL (9.4-12.4); Monocytes # 1.1 K/mcL (0.0-1.3); Monocytes % 10.9 %; Neutrophils # 7.5 K/mcL (1.6-8.9); Platelet Count 191 K/mcL (140-400); Red Blood Count 2.37 M/mcL (3.82-4.97); Red Cell Distribution Width 15.9 % (11.5-14.5); Segmented Neutrophils % 75.8 %; White Blood Count 9.9 K/mcL (4.3-11.1)
[2021-08-31 05:53] LABS: INR 1.2; Prothrombin Time 13.3 Seconds (9.4-12.1)
[2021-08-31 06:11] LABS: Calcium 7.9 mg/dL (8.6-10.3); Chol/HDL Ratio 2.8 (0-4.9); Magnesium 2.3 mg/dL (1.6-2.6); Phosphorous 4.9 mg/dL (2.7-4.5); Potassium 4.2 mEq/L (3.5-5.1)
[2021-08-31 06:22] LABS: Thyroid Stimulating Hormone 17.921 mcIU/mL (0.340-5.600)
[2021-08-31 10:59] VITALS: PULSE 76; O2SAT 95
[2021-08-31] MEDS ORDERED: *HR* Heparin 10,000 UNIT/10 ML VIAL IV PRN (12:50)
[2021-08-31] MEDS ORDERED: 0.9 % Sodium Chloride 250 ML IVC PRN (12:50)
[2021-08-31] MEDS ORDERED: 0.9 % Sodium Chloride 1,000 ML PRIME SCH (13:00)
[2021-08-31] MEDS ORDERED: Gabapentin 300 MG CAPSULE PO PRN (15:01)
[2021-08-31 18:37] VITALS: BP 163/81; TEMP 98.4
[2021-08-31] MEDS ORDERED: rOPINIRole 0.25 MG TABLET PO SCH (21:00)
[2021-09-01] MEDS ORDERED: Vitamin B Complex/Vit C/Vit E 1 EACH TABLET PO SCH (09:00)
[2021-09-01] MEDS ORDERED: Zinc Sulfate 220 MG CAPSULE PO SCH (09:00)
[2021-09-01] MEDS ORDERED: predniSONE 5 MG TABLET PO SCH (09:00)
== END 2021-08-31 19:05 | disposition home or self-care (01) ==
LOC: EMEROOARM 19:37 → 2ANU 19:37 → SUATTDRO 08-31 01:19 → 2ANU 08-31 02:17
PROVIDERS: ADMIT Internal Medicine; ATTEND Internal Medicine